=== PATIENT | male | born 1975 | race Caucasian/White ===

== ENCOUNTER 2018-01-06 09:25 | Inpatient (IN) | payer BC, OTHER ==
[~2018-01-06] VITALS: Ht 177.8 cm; Wt 74.8 kg
--- NOTE | 2018-01-06 09:34 | NUR ---
PT IS IN ROOM #2A. DR DILLARD EVALUATED THE PT.
[2018-01-06 10:06] LABS: BASOPHILS # (AUTO) 0.1 K/uL (0.0-8.0); BASOPHILS % (AUTO) 0.4 % (0.0-2.0); EOSINOPHILS % (AUTO) 0.1 % (0.0-7.0); HEMATOCRIT 48.6 % (36.7-47.1); HEMOGLOBIN 16.5 g/dL (12.5-16.3); LYMPHOCYTES # (AUTO) 0.5 K/uL (20.0-40.0); LYMPHOCYTES % (AUTO) 2.9 % (20.5-51.5); MEAN CORPUSCULAR HEMOGLOBIN 32.7 uug (23.8-33.4); MEAN CORPUSCULAR HGB CONC 34 g/dL (32.5-36.3); MEAN CORPUSCULAR VOLUME 96.3 fL (73.0-96.2); MONOCYTES # (AUTO) 1.2 K/uL (2.0-10.0); MONOCYTES % (AUTO) 7.1 % (0.0-11.0); NEUTROPHILS % (AUTO) 89.5 % (38.5-71.5); PLATELET COUNT (AUTO) 113 K/uL (152-348); RED BLOOD CELL COUNT(AUTO) 5.04 MIL/uL (4.06-5.63); WHITE BLOOD COUNT (AUTO) 16.7 K/uL (3.6-10.2)
[2018-01-06 10:07] LABS: CARBON DIOXIDE 17 mmol/L (21-32); CHLORIDE 98 mmol/L (98-107); CREATININE 1.2 mg/dL (0.6-1.3); GLUCOSE 169 mg/dL (74-106); POTASSIUM 3.1 mmol/L (3.5-5.1); UREA NITROGEN, BLOOD 4 mg/dL (7-18)
[2018-01-06 10:24] LABS: ACETAMINOPHEN 2.8 ug/mL (10-30); ALANINE AMINOTRANSFERASE 163 U/L (16-63); ALKALINE PHOSPHATASE 145 U/L (50-136); ASPARTATE AMINOTRANSFERASE 365 U/L (15-37); BILIRUBIN,DIRECT 0.5 mg/dL (0.0-0.2); BILIRUBIN,TOTAL 1.4 mg/dL (0.2-1.0); TOTAL PROTEIN, SERUM 6.9 g/dL (6.4-8.2)
[2018-01-06] MEDS ORDERED: IV NORMAL SALINE 1000 ML BAG IV ONE (10:30)
[2018-01-06 10:31] LABS: BAND % (MANUAL) 8 % (0-10); LYMPHOCYTES % (MANUAL) 2 % (20-40); MONOCYTES % (MANUAL) 6 % (2-10); NEUTROPHILS % (MANUAL) 84 % (42-75)
--- NOTE | 2018-01-06 10:35 | NUR ---
[facility] WAS CALLED TO TALK TO DR KEATING.
[2018-01-06 10:51] LABS: ETHANOL < 3 MG/DL (0-0)
[2018-01-06 10:57] LABS: THYROID STIMULATING HORMONE 1.926 mIU/mL (0.358-3.740)
[2018-01-06] MEDS ORDERED: LORAZEPAM 2 MG/1 ML VIAL IV ONE (11:30)
[2018-01-06] MEDS ORDERED: LORAZEPAM 2 MG/1 ML VIAL ONE (11:30)
--- NOTE | 2018-01-06 11:32 | NUR ---
PT WAS TRANSFERED TO ROOM #204. REPORT WAS GIVEN TO MEDIA PLANNER / BUYER.
[2018-01-06] MEDS ORDERED: ACETAMINOPHEN 650 MG SUPP.RECT RC PRN (12:45)
[2018-01-06] MEDS ORDERED: ONDANSETRON 4 MG/2 ML VIAL IV PRN (12:45)
[2018-01-06] MEDS ORDERED: LORAZEPAM 2 MG/1 ML VIAL IV PRN (12:45)
[2018-01-06] MEDS: LORAZEPAM 2 MG/1 ML VIAL IV PRN ×2 (13:10→20:38)
[2018-01-06 13:48] VITALS: BP 152/84
[2018-01-06] MEDS: POTASSIUM CHLORIDE 20 MEQ in IV D5 1/2 NS 1000 ML 1,000 ML IV PRN ×2 (15:48→23:29)
--- NOTE | 2018-01-06 18:52 | NUR ---
PT OBSERVED RESTING IN BED WITH NO SIGNS OF RESPIRATORY DISTRESS, BREATHING EQUALLY. CALM, COOPERATIVE NO SIGNS OR SEIZURE ACTIVITY. IV SITE INTACT LEFT AC #20 GAUGE. SEIZURE PRECAUTIONS INITIATED. CONTINUE TO MONITOR PT.
[2018-01-06 20:10] VITALS: BP 117/72
--- NOTE | 2018-01-06 21:00 | NUR ---
Received patient awake in bed, no SOB denies chest pain. Anxious w/ hand tremors noted, c/o N/V. Continuos IVF infusing well, IV site patent no signs of infiltration. Tele shows sinus rhythm 90s. NPO, ice chips provided. Ativan 2 mg IVP adm. Will continue to monitor.
--- NOTE | 2018-01-06 21:56 | NUR ---
Remains awake but calm at this time. Seizure precaution observed, padded side rails x4 maintained.
[2018-01-06] MEDS: MORPHINE SULFATE 2 MG/1 ML DISP.SYRIN IV PRN (23:27)
--- NOTE | 2018-01-06 23:33 | NUR ---
Patient still awake, bilateral hand tremors noted c/o abdominal discomfort. Patient warm to touch w/ current temp 99.9 F. Morphine 2 mg IVP adm for abdominal pain. Encouraged to take a bath but patient stated he will do it in the morning. Sponge bath & oral care provided. Cooling measures applied. IVF maintained.
[2018-01-07] VITALS: BP 131/82
[2018-01-07] MEDS: LORAZEPAM 2 MG/1 ML VIAL IV PRN (02:01)
[2018-01-07 04:24] VITALS: BP 122/62
[2018-01-07] MEDS: PANTOPRAZOLE SODIUM 40 MG VIAL IV SCH (06:20)
[2018-01-07] MEDS: POTASSIUM CHLORIDE 20 MEQ in IV D5 1/2 NS 1000 ML 1,000 ML IV PRN (06:31)
[2018-01-07 06:34] LABS: BASOPHILS # (AUTO) 0.1 K/uL (0.0-8.0); BASOPHILS % (AUTO) 0.6 % (0.0-2.0); EOSINOPHILS % (AUTO) 0.3 % (0.0-7.0); HEMATOCRIT 47.7 % (36.7-47.1); HEMOGLOBIN 16.4 g/dL (12.5-16.3); LYMPHOCYTES # (AUTO) 0.5 K/uL (20.0-40.0); LYMPHOCYTES % (AUTO) 3.7 % (20.5-51.5); MEAN CORPUSCULAR HEMOGLOBIN 33.2 uug (23.8-33.4); MEAN CORPUSCULAR HGB CONC 34 g/dL (32.5-36.3); MEAN CORPUSCULAR VOLUME 96.8 fL (73.0-96.2); MONOCYTES # (AUTO) 0.7 K/uL (2.0-10.0); MONOCYTES % (AUTO) 4.7 % (0.0-11.0); NEUTROPHILS # (AUTO) 13.5 K/uL (1.8-8.9); NEUTROPHILS % (AUTO) 90.7 % (38.5-71.5); PLATELET COUNT (AUTO) 103 K/uL (152-348); RED BLOOD CELL COUNT(AUTO) 4.93 MIL/uL (4.06-5.63); WHITE BLOOD COUNT (AUTO) 14.9 K/uL (3.6-10.2)
--- NOTE | 2018-01-07 07:00 | NUR ---
No seizure activity noted. Assisted to the bathroom PRN. Foul odor urine noted, urine specimen sent to the lab for UA C&S test. Vital signs WNL. Sinus rhythm sinus tachy on the monitor.
[2018-01-07 07:15] LABS: BILIRUBIN,TOTAL 1.7 mg/dL (0.2-1.0); CREATININE 0.9 mg/dL (0.6-1.3); MAGNESIUM 1.5 mg/dL (1.8-2.4); PHOSPHOROUS 1.3 mg/dL (2.5-4.9); POTASSIUM 3.2 mmol/L (3.5-5.1); TOTAL PROTEIN, SERUM 6.5 g/dL (6.4-8.2)
[2018-01-07 07:55] LABS: *BLOOD, URINE 1+ (NEGATIVE); *CLARITY,URINE SLIGHTLY CLOUDY (CLEAR); *KETONES,URINE NEGATIVE (NEGATIVE); *PROTEIN,URINE 1+ (NEGATIVE); LEUKOCYTE ESTERASE ,URINE 2+ (NEGATIVE); NITRITE, URINE POSITIVE (NEGATIVE); UGLUCOSE NEGATIVE (NEGATIVE)
--- NOTE | 2018-01-07 08:00 | NUR ---
UP AND ABOUT TO BATHROOM NO SS OF SEIZURE. NOTED SHAKING BOTH HANDS. CONTINUE WITH CLOSE OBSERVATION. NPO FOR PANCREATITIS TILL FURTHER ORDER. SR/ST ON MONITOR. DENIES CP OR SOB
[2018-01-07 08:30] LABS: *BILIRUBIN,URIN 1+ (NEGATIVE); *COLOR,URINE DARK YELLOW (YELLOW)
[2018-01-07 08:52] LABS: *AMPHETAMINE, URINE NEGATIVE (NEGATIVE); *BARBITURATE, URINE NEGATIVE (NEGATIVE); *CANNABINOID, URINE NEGATIVE (NEGATIVE); *COCCAINE, URINE NEGATIVE (NEGATIVE); *OPIATE, URINE POSITIVE (NEGATIVE); *PHENCYCLIDINE SCREEN,URINE NEGATIVE (NEGATIVE)
[2018-01-07 09:00] LABS: BACTERIA,URINE MANY /HPF (NONE SEEN); SQUAMOUS EPITHELIAL CELL,UR FEW /HPF (NONE SEEN); WBC,URINE 50-80 /HPF (0-3)
[2018-01-07 11:07] VITALS: BP 130/87
[2018-01-07] MEDS: MAGNESIUM SULFATE/D5W 100 ML IV SCH ×2 (12:27→13:23)
--- NOTE | 2018-01-07 13:36 | NUR ---
RESTING COMFORTABLY, CLOSELY MONITORED FOR SEIZURE ACTIVITY. SEEN BY DR KEATING NOTED LABS WITH ORDER
[2018-01-07] MEDS: CEFTRIAXONE 1 G in IV DEXTROSE 5% 50 ML IV SCH (14:49)
[2018-01-07] MEDS: POTASSIUM CHLORIDE 20 MEQ in IV 1/2NS 1000 ML 1,000 ML IV PRN (14:51)
[2018-01-07 15:03] VITALS: BP 140/88
[2018-01-07] MEDS: POTASSIUM PHOSPHATE MM 7.5 MMOL in IV DEXTROSE 5% 100 ML IV SCH ×2 (15:06→18:32)
--- NOTE | 2018-01-07 18:12 | NUR ---
NO ACTIVE SEIZURE NOTED, NO REACTION FROM IV ANTIBIOTIC, SR/ST ON MONITOR NO C/O CHEST PAIN. AFEBRILE
--- NOTE | 2018-01-07 19:20 | NUR ---
RECEIVE PT LYING IN BED. AAOX4. DENIES ANY PAIN OR SOB AT THIS TIME. NOT IN ACUTE DISTRESS. SINUS RHYTHM ON TELE AT 100/MIN. IV SITE ON RIGHT FA INTACT AND PATENT. IVF INFUSING. SAFETY MEASURE INITIATED AND CALL [facility] WITHIN REACHED.
[2018-01-07 20:24] VITALS: BP 130/84
--- NOTE | 2018-01-08 | NUR ---
TEMP. IS 100.0 ORALLY, OFFERED TYLENOL BUT PT REFUSED. COOLING MEASURE PROVIDED.
[2018-01-08 00:01] VITALS: BP 142/87
--- NOTE | 2018-01-08 01:00 | NUR ---
TEMP. DOWN TO 99.0 ORALLY.
[2018-01-08 04:00] VITALS: BP 140/72
--- NOTE | 2018-01-08 06:07 | NUR ---
AAOX4. DENIES ANY PAIN OR SOB. O2 SAT AT 99% ON RA. NO EPISODE OF SEIZURE. NOT IN ACUTE DISTRESS. PEAK T WAVE ON TELE. IV SITE ON RFA INTACT AND PATENT. IVF INFUSING. SAFETY MEASURE MAINTAINED AND CALL [facility] WITHIN REACH.
--- NOTE | 2018-01-08 07:10 | NUR ---
RECEIVED REPORT FROM HEAD CHARGER NURSE, PATIENT IN BED AWAKE, NO DISTRESS NOTED AT THIS TIME, BED IN LOW POSITION, SIDE RAILS UP X2.
[2018-01-08 07:28] LABS: BASOPHILS % (AUTO) 0.3 % (0.0-2.0); EOSINOPHILS # (AUTO) 0.1 K/uL (0.0-0.7); EOSINOPHILS % (AUTO) 0.8 % (0.0-7.0); HEMATOCRIT 46.7 % (36.7-47.1); LYMPHOCYTES # (AUTO) 0.4 K/uL (20.0-40.0); LYMPHOCYTES % (AUTO) 4.5 % (20.5-51.5); MEAN CORPUSCULAR HGB CONC 34 g/dL (32.5-36.3); MEAN CORPUSCULAR VOLUME 96.4 fL (73.0-96.2); MONOCYTES # (AUTO) 0.9 K/uL (2.0-10.0); NEUTROPHILS # (AUTO) 8.2 K/uL (1.8-8.9); NEUTROPHILS % (AUTO) 85.4 % (38.5-71.5); PLATELET COUNT (AUTO) 95 K/uL (152-348); RED BLOOD CELL COUNT(AUTO) 4.84 MIL/uL (4.06-5.63)
[2018-01-08 07:35] LABS: BILIRUBIN,TOTAL 1.7 mg/dL (0.2-1.0); CREATININE 0.7 mg/dL (0.6-1.3); MAGNESIUM 1.8 mg/dL (1.8-2.4); PHOSPHOROUS 1.7 mg/dL (2.5-4.9); POTASSIUM 3.4 mmol/L (3.5-5.1); TOTAL PROTEIN, SERUM 6.4 g/dL (6.4-8.2)
[2018-01-08 07:39] LABS: WHITE BLOOD COUNT (AUTO) 9.6 K/uL (3.6-10.2)
--- NOTE | 2018-01-08 08:00 | NUR ---
AWAKE ALERT AND ORIENTED X3, DENIES PAIN OR SOB, DENIES ABDOMINAL PAIN. WILL FOLLOW-UP LABS. SR/ST ON MONITOR
[2018-01-08] MEDS: PANTOPRAZOLE SODIUM 40 MG VIAL IV SCH (08:50)
[2018-01-08] MEDS: POTASSIUM CHLORIDE 20 MEQ in IV 1/2NS 1000 ML 1,000 ML IV PRN (08:55)
--- NOTE | 2018-01-08 10:30 | NUR ---
GAVE REPORT TO RN MARLENI, PATIENT AWAKE/ALERT, NO DISTRESS NOTED AT THIS TIME.
[2018-01-08 10:44] LABS: BAND % (MANUAL) 3 % (0-10); LYMPHOCYTES % (MANUAL) 2 % (20-40); MONOCYTES % (MANUAL) 9 % (2-10); NEUTROPHILS % (MANUAL) 86 % (42-75)
[2018-01-08 11:00] VITALS: BP 114/68
--- NOTE | 2018-01-08 12:00 | NUR ---
SEEN BY DR KEATING TALKED ABOUT PLAN OF CARE. PLAN DC IN AM.
[2018-01-08] MEDS: CEFTRIAXONE 1 G in IV DEXTROSE 5% 50 ML IV SCH (14:22)
[2018-01-08] MEDS: POTASSIUM PHOSPHATE MM 5 MMOL in IV DEXTROSE 5% 100 ML IV SCH ×4 (14:59→21:40)
[2018-01-08 15:25] VITALS: BP 108/72
[2018-01-08] MEDS: MORPHINE SULFATE 2 MG/1 ML DISP.SYRIN IV PRN (15:26)
--- NOTE | 2018-01-08 15:30 | NUR ---
C/O SEVERE SHOOK MEDICATED WITH MORPHINE WITH GOOD RELIEF. REMAINS SRST ON MONITOR
--- NOTE | 2018-01-08 19:13 | NUR ---
RECEIVE PT LYING IN BED. AAOX4. DENIES ANY PAIN OR SOB AT THIS TIME. NOT IN ACUTE DISTRESS. IV SITE ON RIGHT FA INTACT AND PATENT. IV INFUSING. SAFETY MEASURE INITIATED AND CALL [facility] WITHIN REACHED.
[2018-01-08 20:00] VITALS: BP 130/86
[2018-01-08] MEDS ORDERED: ACETAMINOPHEN 650 MG SUPP.RECT RC PRN (20:45)
[2018-01-08] MEDS ORDERED: ACETAMINOPHEN 325 MG TABLET PO PRN (21:00)
--- NOTE | 2018-01-08 21:00 | NUR ---
PT TEMP IS 102.1 ORALLY. COOLING MEASURE PROVIDED. ALSO INFORMED DOCTOR ZURI. AND ORDER TO CHANGE ACETAMINOPHEN TO ORAL FORM AND BLOOD CULTURE X2. ORDER READ BACK AND CARRIED OUT. INFORM BREAKER MACHINE TENDER NATHAN OF BLOOD CULTURE ORDER. ACETAMINOPHEN 650MG PO PROVIDED. CONTINUE TO MONITOR.
--- NOTE | 2018-01-08 21:45 | NUR ---
ORAL TEMP. DOWN TO 99.5. CONTINUE COOLING MEASURES.
--- NOTE | 2018-01-09 | NUR ---
DOCTOR ZURI WITH ORDER TO START PT ON MERREM 1GM Q8HR DUE TO INCREASE TEMP. ORDER NOTED AND CARRIED.
[2018-01-09] MEDS ORDERED: MEROPENEM 1 G VIAL IV ONE (00:30)
[2018-01-09] MEDS: POTASSIUM CHLORIDE 20 MEQ in IV 1/2NS 1000 ML 1,000 ML IV PRN ×2 (04:27→23:09)
[2018-01-09 05:15] VITALS: BP 128/89
[2018-01-09] MEDS: MEROPENEM 1 G in IV NORMAL SALINE 100 ML IV SCH ×5 (05:59→22:07)
[2018-01-09] MEDS: PANTOPRAZOLE SODIUM 40 MG TABLET.DR PO SCH (06:00)
--- NOTE | 2018-01-09 06:01 | NUR ---
PT SLEPT WELL LAST NIGHT. AROUSE TO VERBAL STIMULI. AOX4. DENIES ANY PAIN OR SOB. O2 SAT AT 98% ON RA. NO SEIZURE EPISODE. NOT IN ACUTE DISTRESS. LATEST TEMP-97.3 ORALLY. NO ADVERSE REACTION NOTED FROM ABX. IV SITE ON RFA INTACT AND PATENT. IVF INFUSING. SAFETY MEASURE MAINTAINED AND CALL [facility] WITHIN REACH.
[2018-01-09 07:17] LABS: BASOPHILS % (AUTO) 0.6 % (0.0-2.0); EOSINOPHILS % (AUTO) 0.8 % (0.0-7.0); HEMATOCRIT 47.8 % (36.7-47.1); HEMOGLOBIN 16.4 g/dL (12.5-16.3); LYMPHOCYTES # (AUTO) 0.3 K/uL (20.0-40.0); LYMPHOCYTES % (AUTO) 5.2 % (20.5-51.5); MEAN CORPUSCULAR HEMOGLOBIN 33.1 uug (23.8-33.4); MEAN CORPUSCULAR HGB CONC 34 g/dL (32.5-36.3); MEAN CORPUSCULAR VOLUME 96.5 fL (73.0-96.2); MONOCYTES # (AUTO) 1.1 K/uL (2.0-10.0); MONOCYTES % (AUTO) 19.1 % (0.0-11.0); NEUTROPHILS # (AUTO) 4.1 K/uL (1.8-8.9); NEUTROPHILS % (AUTO) 74.3 % (38.5-71.5); PLATELET COUNT (AUTO) 114 K/uL (152-348); RED BLOOD CELL COUNT(AUTO) 4.95 MIL/uL (4.06-5.63); WHITE BLOOD COUNT (AUTO) 5.6 K/uL (3.6-10.2)
[2018-01-09 07:37] LABS: ALANINE AMINOTRANSFERASE 96 U/L (16-63); ALKALINE PHOSPHATASE 126 U/L (50-136); ASPARTATE AMINOTRANSFERASE 127 U/L (15-37); BILIRUBIN,TOTAL 1.2 mg/dL (0.2-1.0); CARBON DIOXIDE 23 mmol/L (21-32); CHLORIDE 101 mmol/L (98-107); CREATININE 0.6 mg/dL (0.6-1.3); GLUCOSE 90 mg/dL (74-106); LIPASE 835 U/L (73-393); MAGNESIUM 1.7 mg/dL (1.8-2.4); PHOSPHOROUS 1.8 mg/dL (2.5-4.9); POTASSIUM 3.2 mmol/L (3.5-5.1); TOTAL PROTEIN, SERUM 6.3 g/dL (6.4-8.2); UREA NITROGEN, BLOOD 4 mg/dL (7-18)
[2018-01-09 09:46] LABS: BAND % (MANUAL) 10 % (0-10); EOSINOPHILS % (MANUAL) 2 % (0-8); LYMPHOCYTES % (MANUAL) 4 % (20-40); METAMYELOCYTES % 1 % (0-1); MONOCYTES % (MANUAL) 15 % (2-10); NEUTROPHILS % (MANUAL) 68 % (42-75)
[2018-01-09 11:23] VITALS: BP 114/79
[2018-01-09] MEDS: MAGNESIUM SULFATE/D5W 100 ML IV SCH ×2 (14:48→15:19)
[2018-01-09 16:00] VITALS: BP 124/86
[2018-01-09] MEDS: POTASSIUM PHOSPHATE MM 7.5 MMOL in IV DEXTROSE 5% 100 ML IV SCH ×2 (16:10→20:29)
[2018-01-09] MEDS ORDERED: IV NORMAL SALINE 100 ML ONE (18:26)
[2018-01-09] MEDS ORDERED: IOHEXOL 300MG/ML 100 ML INFUS..BTL ONE (18:26)
[2018-01-09] MEDS ORDERED: DIATR MEGLU/DIATRIZOATE SODIUM 30 ML SOLUTION ONE (18:26)
[2018-01-09] MEDS ORDERED: NORMAL SALINE FLUSH 10 ML DISP.SYRIN ONE (18:26)
--- NOTE | 2018-01-09 19:20 | NUR ---
RECEIVED Pt IN BED, AWAKE A/O X 4, NO DISTRESS, NOT COMPLAINING OF PAIN. Pt IS GETTING READY TO LEAVE UNIT AND GET A CT SCAN OF ABDOMEN. HELD CURRENT SCHEDULED IV ADMINISTRATIONS FOR NOW UNTIL Pt COMES BACK FROM CT SCAN.
[2018-01-09 20:20] VITALS: BP 136/99
--- NOTE | 2018-01-09 20:30 | NUR ---
Pt BACK IN BED FROM CT SCAN, STARTED A NEW IV ON LEFT HAND. Pt COMPLAINED OF DISCOMFORT ON THE PRESENT IV SITE ON RIGHT HAND. WILL ADMINISTER ALL SCHEDULED IV BAGS ORDERED ON NEW SITE. WILL D/C THE OLD IV SITE.
[2018-01-10 04:57] VITALS: BP 121/83
[2018-01-10] MEDS: PANTOPRAZOLE SODIUM 40 MG TABLET.DR PO SCH (06:17)
[2018-01-10] MEDS: MEROPENEM 1 G in IV NORMAL SALINE 100 ML IV SCH ×3 (06:18→21:03)
[2018-01-10 06:38] LABS: BILIRUBIN,TOTAL 0.8 mg/dL (0.2-1.0); CREATININE 0.7 mg/dL (0.6-1.3); PHOSPHOROUS 2.3 mg/dL (2.5-4.9); POTASSIUM 3.8 mmol/L (3.5-5.1); TOTAL PROTEIN, SERUM 6.7 g/dL (6.4-8.2)
[2018-01-10 06:50] LABS: BASOPHILS # (AUTO) 0.1 K/uL (0.0-8.0); BASOPHILS % (AUTO) 1.1 % (0.0-2.0); EOSINOPHILS # (AUTO) 0.3 K/uL (0.0-0.7); EOSINOPHILS % (AUTO) 4.3 % (0.0-7.0); HEMATOCRIT 50.2 % (36.7-47.1); HEMOGLOBIN 17.5 g/dL (12.5-16.3); LYMPHOCYTES # (AUTO) 0.6 K/uL (20.0-40.0); MEAN CORPUSCULAR HEMOGLOBIN 33.7 uug (23.8-33.4); MEAN CORPUSCULAR HGB CONC 35 g/dL (32.5-36.3); MEAN CORPUSCULAR VOLUME 96.7 fL (73.0-96.2); MONOCYTES # (AUTO) 1.7 K/uL (2.0-10.0); MONOCYTES % (AUTO) 27.1 % (0.0-11.0); NEUTROPHILS # (AUTO) 3.6 K/uL (1.8-8.9); NEUTROPHILS % (AUTO) 57.5 % (38.5-71.5); PLATELET COUNT (AUTO) 137 K/uL (152-348); RED BLOOD CELL COUNT(AUTO) 5.19 MIL/uL (4.06-5.63); WHITE BLOOD COUNT (AUTO) 6.3 K/uL (3.6-10.2)
--- NOTE | 2018-01-10 07:12 | NUR ---
Pt SLEPT WELL THROUGH THE NIGHT, COMPLIED WITH ALL MEDS AND CARE STAFF, CALM AND PLEASANT. NO S/S OF DISTRESS, NO COMPLAINTS OF PAIN. WILL CONTINUE TO MONITOR AND FOLLOW PLAN OF CARE.
--- NOTE | 2018-01-10 07:15 | NUR ---
RECEIVE PT LYING IN BED. AAOX4. DENIES ANY PAIN OR SOB AT THIS TIME. NOT IN ACUTE DISTRESS. IV SITE INTACT AND PATENT. IV INFUSING. SAFETY MEASURE INITIATED AND CALL [facility] WITHIN REACHED.
[2018-01-10] MEDS: POTASSIUM CHLORIDE 20 MEQ in IV 1/2NS 1000 ML 1,000 ML IV PRN (10:34)
[2018-01-10 11:30] VITALS: BP 126/86
[2018-01-10 11:36] LABS: BAND % (MANUAL) 1 % (0-10); EOSINOPHILS % (MANUAL) 2 % (0-8); LYMPHOCYTES % (MANUAL) 11 % (20-40); MONOCYTES % (MANUAL) 28 % (2-10); NEUTROPHILS % (MANUAL) 58 % (42-75)
[2018-01-10 15:33] VITALS: BP 127/86
[2018-01-10] MEDS ORDERED: SODIUM PHOSPHATE MM 15 MM in IV DEXTROSE 5% 250 ML IV ONE (16:00)
--- NOTE | 2018-01-10 19:30 | NUR ---
Received patient laying comfortably in bed. No acute distress noted. A&O x 4. IVF running on the left FA. No complain of pain at this time. Safety initiated. Call light within reach. Room is kept clutter free. Bed is in low and locked position. Will continue to monitor.
[2018-01-10 20:13] VITALS: BP 130/84
[2018-01-11 05:16] VITALS: BP 116/70
[2018-01-11] MEDS: MEROPENEM 1 G in IV NORMAL SALINE 100 ML IV SCH ×2 (05:23→13:51)
[2018-01-11] MEDS: POTASSIUM CHLORIDE 20 MEQ in IV 1/2NS 1000 ML 1,000 ML IV PRN (05:23)
--- NOTE | 2018-01-11 05:31 | NUR ---
Patient slept t/o shift. No acute distress noted. No c/o pain or SOB. Patient remains A&O x 4. IVF infusing. Abx given as ordered with no adverse effects. Vitals signs stable. Room was kept clutter free. Bed in low and locked position. All meds given as ordered. All needs met.
[2018-01-11] MEDS: PANTOPRAZOLE SODIUM 40 MG TABLET.DR PO SCH (06:25)
[2018-01-11 07:32] LABS: BASOPHILS # (AUTO) 0.1 K/uL (0.0-8.0); EOSINOPHILS # (AUTO) 0.4 K/uL (0.0-0.7); EOSINOPHILS % (AUTO) 5.6 % (0.0-7.0); HEMATOCRIT 48.5 % (36.7-47.1); HEMOGLOBIN 16.7 g/dL (12.5-16.3); LYMPHOCYTES % (AUTO) 14.8 % (20.5-51.5); MEAN CORPUSCULAR HEMOGLOBIN 33.1 uug (23.8-33.4); MEAN CORPUSCULAR HGB CONC 34 g/dL (32.5-36.3); MEAN CORPUSCULAR VOLUME 96.2 fL (73.0-96.2); MONOCYTES # (AUTO) 1.9 K/uL (2.0-10.0); MONOCYTES % (AUTO) 29.3 % (0.0-11.0); NEUTROPHILS # (AUTO) 3.2 K/uL (1.8-8.9); NEUTROPHILS % (AUTO) 49.3 % (38.5-71.5); PLATELET COUNT (AUTO) 169 K/uL (152-348); RED BLOOD CELL COUNT(AUTO) 5.04 MIL/uL (4.06-5.63); WHITE BLOOD COUNT (AUTO) 6.5 K/uL (3.6-10.2)
[2018-01-11 07:58] LABS: BILIRUBIN,TOTAL 0.8 mg/dL (0.2-1.0); CREATININE 0.7 mg/dL (0.6-1.3); MAGNESIUM 1.9 mg/dL (1.8-2.4); PHOSPHOROUS 2.4 mg/dL (2.5-4.9); POTASSIUM 3.2 mmol/L (3.5-5.1); TOTAL PROTEIN, SERUM 6.4 g/dL (6.4-8.2)
--- NOTE | 2018-01-11 08:00 | NUR ---
AWAKE ALERT COOPERATE WELL KEEP NPO AND CONTINUE IVF NO PAIN OR SOB AT THIS TIME RESTING WELL WITH CALL LIGHT IN REACH
[2018-01-11 09:34] LABS: BAND % (MANUAL) 4 % (0-10); EOSINOPHILS % (MANUAL) 3 % (0-8); LYMPHOCYTES % (MANUAL) 11 % (20-40); MONOCYTES % (MANUAL) 30 % (2-10); NEUTROPHILS % (MANUAL) 52 % (42-75)
--- NOTE | 2018-01-11 10:35 | NUR ---
DR KEATING WAS INFORM OF K+ AND PO3 RESULT THIS AM
[2018-01-11 11:02] VITALS: BP 120/86
--- NOTE | 2018-01-11 13:45 | NUR ---
MEDICATION KPO4 IVPB GIVEN ORDER MELYSSA PROCEDURE WELL RESTING STILL NPO NO PAIN OR N/V AT THIS TIME
[2018-01-11] MEDS: POTASSIUM PHOSPHATE MM 7.5 MMOL in IV DEXTROSE 5% 100 ML IV SCH ×2 (13:49→17:34)
[2018-01-11 15:02] VITALS: BP 123/93
--- NOTE | 2018-01-11 18:30 | NUR ---
STABLE CONDITION STILL NPO CONTINUE IVF NO N/V PAIN UNDER CONTROL SAFETY MEASURE PROVIDED CALL LIGHT IN REACH
--- NOTE | 2018-01-11 19:30 | NUR ---
Received patient laying comfortably in bed. No acute distress noted. No c/o of pain or SOB. A&O x 4. IVF running on the left FA. No complain of pain at this time. Skin intact. Safety initiated. Call light within reach. Room is kept clutter free. Bed is in low and locked position. Will continue to monitor.
[2018-01-11 19:38] VITALS: BP 131/68
[2018-01-11] MEDS: LEVOFLOXACIN 500 MG/D5W 500 MG in PREMIXED 1 EACH IV SCH (21:01)
[2018-01-12] VITALS: BP 112/76
[2018-01-12] MEDS: POTASSIUM CHLORIDE 20 MEQ in IV 1/2NS 1000 ML 1,000 ML IV PRN ×2 (01:48→13:26)
[2018-01-12 04:00] VITALS: BP 119/75
--- NOTE | 2018-01-12 05:40 | NUR ---
Patient slept intermittently t/o shift. In no apparent distress noted. Vital signs stable. A/O x 4. Patient's IV site was red and irritated. Re-started an IV on the left AC # 20. IVF infusing. Safety and comfort measures maintained t/o shift. Room was kept clutter free. Patient remains cooperative and med compliant. All meds given as ordered. All need met.
[2018-01-12 06:05] LABS: BASOPHILS # (AUTO) 0.1 K/uL (0.0-8.0); BASOPHILS % (AUTO) 1.1 % (0.0-2.0); EOSINOPHILS # (AUTO) 0.3 K/uL (0.0-0.7); EOSINOPHILS % (AUTO) 5.2 % (0.0-7.0); LYMPHOCYTES # (AUTO) 0.9 K/uL (20.0-40.0); LYMPHOCYTES % (AUTO) 16.5 % (20.5-51.5); MEAN CORPUSCULAR HEMOGLOBIN 32.7 uug (23.8-33.4); MEAN CORPUSCULAR HGB CONC 34 g/dL (32.5-36.3); MEAN CORPUSCULAR VOLUME 96.8 fL (73.0-96.2); MONOCYTES # (AUTO) 1.5 K/uL (2.0-10.0); MONOCYTES % (AUTO) 27.4 % (0.0-11.0); NEUTROPHILS # (AUTO) 2.8 K/uL (1.8-8.9); NEUTROPHILS % (AUTO) 49.8 % (38.5-71.5); PLATELET COUNT (AUTO) 207 K/uL (152-348); RED BLOOD CELL COUNT(AUTO) 5.54 MIL/uL (4.06-5.63); WHITE BLOOD COUNT (AUTO) 5.6 K/uL (3.6-10.2)
[2018-01-12] MEDS: PANTOPRAZOLE SODIUM 40 MG TABLET.DR PO SCH (06:23)
[2018-01-12 06:24] LABS: MAGNESIUM 1.8 mg/dL (1.8-2.4); PHOSPHOROUS 2.4 mg/dL (2.5-4.9)
[2018-01-12 06:36] LABS: HEMATOCRIT 53.6 % (36.7-47.1); HEMOGLOBIN 18.1 g/dL (12.5-16.3)
--- NOTE | 2018-01-12 07:25 | NUR ---
RECEIVE PT LYING IN BED. AAOX4. DENIES ANY PAIN OR SOB AT THIS TIME. NOT IN ACUTE DISTRESS. IV SITE ON LAC INTACT AND PATENT. IV INFUSING. SAFETY MEASURE INITIATED AND CALL [facility] WITHIN REACHED.
[2018-01-12 10:51] LABS: BAND % (MANUAL) 2 % (0-10); EOSINOPHILS % (MANUAL) 5 % (0-8); LYMPHOCYTES % (MANUAL) 17 % (20-40); MONOCYTES % (MANUAL) 22 % (2-10); NEUTROPHILS % (MANUAL) 54 % (42-75)
[2018-01-12 11:03] VITALS: BP 121/63
[2018-01-12] MEDS ORDERED: MORPHINE SULFATE 4 MG/1 ML DISP.SYRIN IV PRN (11:45)
[2018-01-12 12:50] LABS: CREATININE 0.8 mg/dL (0.6-1.3); POTASSIUM 3.7 mmol/L (3.5-5.1)
[2018-01-12 12:56] LABS: BILIRUBIN,TOTAL 0.8 mg/dL (0.2-1.0)
[2018-01-12 15:12] VITALS: BP 117/75
[2018-01-12] MEDS: POTASSIUM PHOSPHATE MM 5 MMOL in IV DEXTROSE 5% 100 ML IV SCH ×3 (16:10→22:20)
[2018-01-12] MEDS: LEVOFLOXACIN 500 MG/D5W 500 MG in PREMIXED 1 EACH IV SCH (18:16)
[2018-01-12 20:00] VITALS: BP 121/71
[2018-01-13] MEDS: POTASSIUM PHOSPHATE MM 5 MMOL in IV DEXTROSE 5% 100 ML IV SCH (00:29)
[2018-01-13 04:00] VITALS: BP 115/75
[2018-01-13] MEDS: POTASSIUM CHLORIDE 20 MEQ in IV 1/2NS 1000 ML 1,000 ML IV PRN (04:58)
[2018-01-13] MEDS: PANTOPRAZOLE SODIUM 40 MG TABLET.DR PO SCH (06:08)
--- NOTE | 2018-01-13 06:49 | NUR ---
NO DISTRESS NOTED THROUGHOUT THE NIGHT. IV POTASSIUM BAG ADMINISTERED ORDERED. SAFETY MEASURES PROVIDED. VITAL SIGNS WNL. CALL LIGHT WITHIN REACH
[2018-01-13 11:04] VITALS: BP 111/80
[2018-01-13 15:09] VITALS: BP 116/58
[2018-01-13] MEDS ORDERED: FAMO-132 PO (15:17)
[2018-01-13] MEDS ORDERED: LEVO500T2 PO (15:17)
--- NOTE | 2018-01-13 16:00 | NUR ---
Discharge instructions given to pt. Pt tolerated regular diet without any c/o pain. Pt is in no acute distress. Pt is to f/u with PMD within 1 week re: elevated lipase level. Prescription given to pt. Educated pt on how to used probiotics secondary to pt's being sent home with marge. Pt verbalized understanding.
[2018-01-13] MEDS ORDERED: LEVOFLOXACIN 500 MG TABLET PO SCH (18:00)
== END 2018-01-13 16:00 | disposition home or self-care (01) | DRG 871 ==
LOC: ER 09:25 → TELE 11:31 → MED 01-08 18:44
PROVIDERS: ADMIT Internal Medicine; ATTEND Internal Medicine
DX: A41.51 Sepsis due to Escherichia coli [E. coli] (principal); K85.90 Acute pancreatitis without necrosis or infection, unspecified; R56.9 Unspecified convulsions; F10.239 Alcohol dependence with withdrawal, unspecified; N39.0 Urinary tract infection, site not specified; A04.9 Bacterial intestinal infection, unspecified; K70.10 Alcoholic hepatitis without ascites; Y90.0 Blood alcohol level of less than 20 mg/100 ml; Z82.49 Family history of ischemic heart disease and other diseases of the circulatory system; Z16.11 Resistance to penicillins; E87.6 Hypokalemia; R53.1 Weakness; K42.9 Umbilical hernia without obstruction or gangrene; K76.0 Fatty (change of) liver, not elsewhere classified; R00.0 Tachycardia, unspecified
CPT/HCPCS: 36415; 70030-TC; 70450; 71045; 72125; 76705; 80307; 83550; 83605; 83690; 83735; 84100; 84443; 85025; 85730; 87040; 87077; 87086; 93005; A4663; C9113; G0480; G0480-TC; J0696; J1956; J2060; J2185; J2270; J2405; J3475; J3480; J3490; J7030; J7060; Q9963; Q9967

== ENCOUNTER 2018-02-07 07:42 | Inpatient (IN) | payer BC, OTHER ==
[~2018-02-07] VITALS: Ht 177.8 cm; Wt 72.6 kg
[~2018-02-07 07:42] MED LIST: FAMO-132 PO; LEVO500T2 PO
[2018-02-07] MEDS ORDERED: CLONAZEPAM 0.5 MG TABLET (07:51)
[2018-02-07] MEDS ORDERED: GENTAMICIN SULFATE INJ 80 MG in IV DEXTROSE 5% 100 ML IV ONE (08:15)
[2018-02-07] MEDS ORDERED: ONDANSETRON 4 MG/2 ML VIAL IV ONE (08:15)
[2018-02-07] MEDS ORDERED: IV NORMAL SALINE 1000 ML BAG IV ONE (08:15)
[2018-02-07] MEDS ORDERED: LORAZEPAM 2 MG/1 ML VIAL IV ONE ×2 (08:15→17:45)
[2018-02-07] MEDS ORDERED: CEFEPIME HCL 1 G in IV DEXTROSE 5% 50 ML IV ONE (08:15)
[2018-02-07] MEDS ORDERED: VANCOMYCIN IV 1,000 MG in IV DEXTROSE 5% 250 ML IV ONE (08:15)
[2018-02-07] MEDS ORDERED: LORAZEPAM 2 MG/1 ML VIAL ONE (08:27)
[2018-02-07] MEDS ORDERED: CEFEPIME HCL 1 G VIAL ONE (08:27)
[2018-02-07] MEDS ORDERED: ONDANSETRON 4 MG/2 ML VIAL ONE (08:28)
[2018-02-07 08:44] LABS: CREATININE 0.9 mg/dL (0.6-1.3); POTASSIUM 3.3 mmol/L (3.5-5.1)
[2018-02-07 08:45] LABS: HEMOGLOBIN 14.7 g/dL (12.5-16.3); MEAN CORPUSCULAR HEMOGLOBIN 32.6 uug (23.8-33.4); MEAN CORPUSCULAR HGB CONC 36 g/dL (32.5-36.3); MEAN CORPUSCULAR VOLUME 91.1 fL (73.0-96.2); WHITE BLOOD COUNT (AUTO) 13.8 K/uL (3.6-10.2)
[2018-02-07 08:47] LABS: PLATELET COUNT (AUTO) 78 K/uL (152-348)
[2018-02-07 08:57] LABS: BILIRUBIN,DIRECT 0.4 mg/dL (0.0-0.2); BILIRUBIN,TOTAL 0.9 mg/dL (0.2-1.0); TOTAL PROTEIN, SERUM 7.2 g/dL (6.4-8.2)
[2018-02-07] MEDS ORDERED: chlorproMAZINE 50 MG/2 ML AMPUL IV ONE (09:00)
[2018-02-07] MEDS ORDERED: VANCOMYCIN IV 200 ML ONE (09:17)
[2018-02-07] MEDS ORDERED: chlorproMAZINE 50 MG/2 ML AMPUL ONE (09:17)
[2018-02-07 09:22] LABS: BAND % (MANUAL) 10 % (0-10); LYMPHOCYTES % (MANUAL) 5 % (20-40); MONOCYTES % (MANUAL) 12 % (2-10); NEUTROPHILS % (MANUAL) 73 % (42-75)
[2018-02-07] MEDS ORDERED: ACETAMINOPHEN ES 500 MG TABLET ONE (10:09)
[2018-02-07] MEDS ORDERED: GENTAMICIN SULFATE 80 MG/2 ML VIAL ONE (10:13)
[2018-02-07] MEDS ORDERED: ACETAMINOPHEN 325 MG TABLET PO ONE (10:15)
[2018-02-07 11:04] LABS: *BILIRUBIN,URIN NEGATIVE (NEGATIVE); *BLOOD, URINE 2+ (NEGATIVE); *CLARITY,URINE CLOUDY (CLEAR); *COLOR,URINE YELLOW (YELLOW); *KETONES,URINE 1+ (NEGATIVE); *PROTEIN,URINE 2+ (NEGATIVE); *UROBILINOGEN,URINE 0.2 E.U./dl (NORMAL); LEUKOCYTE ESTERASE ,URINE 2+ (NEGATIVE); NITRITE, URINE NEGATIVE (NEGATIVE); PH,URINE 6.5 (5.0-8.0); UGLUCOSE NEGATIVE (NEGATIVE)
[2018-02-07 11:25] LABS: BACTERIA,URINE NONE SEEN /HPF (NONE SEEN); SQUAMOUS EPITHELIAL CELL,UR FEW /HPF (NONE SEEN); WBC,URINE TNTC /HPF (0-3)
[2018-02-07] MEDS ORDERED: IV NS 1000 ML 1,000 ML IV PRN (11:34)
[2018-02-07 11:40] VITALS: BP 114/73
[2018-02-07] MEDS ORDERED: ONDANSETRON 4 MG/2 ML VIAL IV PRN (11:45)
[2018-02-07] MEDS ORDERED: TEMAZEPAM 15 MG CAPSULE PO PRN (11:45)
[2018-02-07] MEDS ORDERED: POTASSIUM CHLORIDE 50 ML IV ONE (12:00)
[2018-02-07] MEDS ORDERED: THIAMINE HCL INJ 100 MG in IV DEXTROSE 5% 50 ML IV ONE (13:30)
[2018-02-07] MEDS: LORAZEPAM 2 MG/1 ML VIAL IV PRN (13:45)
[2018-02-07 15:44] VITALS: BP 139/89
[2018-02-07] MEDS: chlorproMAZINE 25 MG TABLET PO PRN (15:46)
[2018-02-07] MEDS ORDERED: LOPERAMIDE HCL 1 MG/5 ML UDC PO PRN (17:45)
[2018-02-07] MEDS ORDERED: IV NORMAL SALINE 500 ML BAG IV ONE (17:45)
[2018-02-07] MEDS ORDERED: VANCOMYCIN IV 1 G in PREMIXED 0 EACH IV SCH (19:00)
[2018-02-07] MEDS: ACETAMINOPHEN 325 MG TABLET PO PRN (19:55)
[2018-02-07 20:00] VITALS: BP 114/69
[2018-02-08] VITALS: BP 124/83
[2018-02-08] MEDS: IV NS 1000 ML 1,000 ML IV PRN (03:50)
[2018-02-08 04:00] VITALS: BP 117/70
[2018-02-08] MEDS: LORAZEPAM 2 MG/1 ML VIAL IV PRN ×2 (04:18→23:00)
[2018-02-08] MEDS: ACETAMINOPHEN 325 MG TABLET PO PRN ×2 (04:18→14:34)
[2018-02-08 06:46] LABS: CREATININE 0.9 mg/dL (0.6-1.3); MAGNESIUM 1.4 mg/dL (1.8-2.4); PHOSPHOROUS 1.4 mg/dL (2.5-4.9); POTASSIUM 2.9 mmol/L (3.5-5.1); TOTAL PROTEIN, SERUM 6.2 g/dL (6.4-8.2)
[2018-02-08 06:56] LABS: BASOPHILS % (AUTO) 0.3 % (0.0-2.0); EOSINOPHILS % (AUTO) 0.1 % (0.0-7.0); HEMOGLOBIN 14.4 g/dL (12.5-16.3); LYMPHOCYTES # (AUTO) 0.5 K/uL (20.0-40.0); LYMPHOCYTES % (AUTO) 5.8 % (20.5-51.5); MEAN CORPUSCULAR HEMOGLOBIN 33.2 uug (23.8-33.4); MEAN CORPUSCULAR HGB CONC 36 g/dL (32.5-36.3); MEAN CORPUSCULAR VOLUME 92.6 fL (73.0-96.2); MONOCYTES % (AUTO) 11.5 % (0.0-11.0); NEUTROPHILS # (AUTO) 7.4 K/uL (1.8-8.9); NEUTROPHILS % (AUTO) 82.3 % (38.5-71.5); PLATELET COUNT (AUTO) 75 K/uL (152-348); RED BLOOD CELL COUNT(AUTO) 4.32 MIL/uL (4.06-5.63)
[2018-02-08] MEDS: THIAMINE HCL 100 MG TABLET PO SCH (08:42)
[2018-02-08] MEDS ORDERED: POTASSIUM CHLORIDE 10 MEQ TAB.PRT.SR PO ONE (09:00)
[2018-02-08] MEDS ORDERED: CEFTRIAXONE 1 G in IV DEXTROSE 5% 50 ML IV SCH (09:00)
[2018-02-08 10:57] LABS: BAND % (MANUAL) 10 % (0-10); LYMPHOCYTES % (MANUAL) 10 % (20-40); MONOCYTES % (MANUAL) 8 % (2-10); NEUTROPHILS % (MANUAL) 72 % (42-75)
[2018-02-08] MEDS: MAGNESIUM SULFATE/D5W 100 ML IV SCH ×4 (11:18→22:20)
[2018-02-08] MEDS: chlorproMAZINE 25 MG TABLET PO PRN (11:37)
[2018-02-08 11:49] VITALS: BP 132/84
[2018-02-08 15:00] VITALS: BP 115/76
[2018-02-08] MEDS: POTASSIUM PHOSPHATE MM 5 MMOL in IV DEXTROSE 5% 100 ML IV SCH ×4 (15:24→21:20)
[2018-02-08 20:00] VITALS: BP 126/70
[2018-02-09] VITALS: BP 96/63
[2018-02-09] MEDS ORDERED: PIPERACILLIN/TAZOBACTAM/D5W 100 ML IV ONE (00:18)
[2018-02-09] MEDS: PIPERACILLIN/TAZOBACTAM/D5W 3.375 G in PREMIXED 1 EACH IV SCH ×4 (00:41→21:38)
[2018-02-09] MEDS: IV NS 1000 ML 1,000 ML IV PRN ×3 (01:30→21:37)
[2018-02-09 04:00] VITALS: BP 129/80
[2018-02-09 06:51] LABS: EOSINOPHILS # (AUTO) 0.1 K/uL (0.0-0.7); HEMATOCRIT 42.2 % (36.7-47.1); HEMOGLOBIN 14.8 g/dL (12.5-16.3); LYMPHOCYTES # (AUTO) 0.7 K/uL (20.0-40.0); MEAN CORPUSCULAR HGB CONC 35 g/dL (32.5-36.3)
[2018-02-09 06:53] LABS: CREATININE 0.8 mg/dL (0.6-1.3); MAGNESIUM 2.2 mg/dL (1.8-2.4); PHOSPHOROUS 2.9 mg/dL (2.5-4.9); POTASSIUM 3.9 mmol/L (3.5-5.1)
[2018-02-09 06:57] LABS: BASOPHILS % (AUTO) 0.4 % (0.0-2.0); EOSINOPHILS % (AUTO) 1.6 % (0.0-7.0); LYMPHOCYTES % (AUTO) 10.6 % (20.5-51.5); MEAN CORPUSCULAR VOLUME 93.8 fL (73.0-96.2); MONOCYTES % (AUTO) 13.6 % (0.0-11.0); NEUTROPHILS # (AUTO) 5.2 K/uL (1.8-8.9); NEUTROPHILS % (AUTO) 73.8 % (38.5-71.5)
[2018-02-09 06:58] LABS: PLATELET COUNT (AUTO) 98 K/uL (152-348)
[2018-02-09] MEDS: THIAMINE HCL 100 MG TABLET PO SCH (08:03)
[2018-02-09 09:50] LABS: BAND % (MANUAL) 6 % (0-10); EOSINOPHILS % (MANUAL) 1 % (0-8); LYMPHOCYTES % (MANUAL) 16 % (20-40); MONOCYTES % (MANUAL) 16 % (2-10); NEUTROPHILS % (MANUAL) 61 % (42-75)
[2018-02-09 11:09] VITALS: BP 128/88
[2018-02-09 15:44] VITALS: BP 128/92
[2018-02-09 20:00] VITALS: BP 128/92
[2018-02-10] VITALS: BP 125/70
[2018-02-10 04:00] VITALS: BP 122/70
[2018-02-10] MEDS: PIPERACILLIN/TAZOBACTAM/D5W 3.375 G in PREMIXED 1 EACH IV SCH ×2 (05:36→14:59)
[2018-02-10] MEDS: IV NS 1000 ML 1,000 ML IV PRN (05:38)
[2018-02-10 07:19] LABS: CREATININE 0.7 mg/dL (0.6-1.3); POTASSIUM 3.3 mmol/L (3.5-5.1)
[2018-02-10] MEDS: THIAMINE HCL 100 MG TABLET PO SCH (08:59)
[2018-02-10 11:41] VITALS: BP 138/98
[2018-02-10] MEDS ORDERED: POTASSIUM CHLORIDE 20 MEQ TAB.PRT.SR PO ONE (12:00)
[2018-02-10 15:33] VITALS: BP 129/92
== END 2018-02-10 17:34 | disposition home or self-care (01) | DRG 896 ==
LOC: ER 07:42 → TELE 11:08 → MED 02-10 15:45
PROVIDERS: ADMIT Internal Medicine; ATTEND Nurse Practitioner Acute Care
DX: F10.239 Alcohol dependence with withdrawal, unspecified (principal); A41.9 Sepsis, unspecified organism; E44.0 Moderate protein-calorie malnutrition; D69.59 Other secondary thrombocytopenia; E83.42 Hypomagnesemia; E83.39 Other disorders of phosphorus metabolism; E83.51 Hypocalcemia; N39.0 Urinary tract infection, site not specified; E87.1 Hypo-osmolality and hyponatremia; B96.89 Other specified bacterial agents as the cause of diseases classified elsewhere; Z68.23 Body mass index [BMI] 23.0-23.9, adult; E86.1 Hypovolemia; E87.6 Hypokalemia; Z87.440 Personal history of urinary (tract) infections; Z86.39 Personal history of other endocrine, nutritional and metabolic disease; Y90.9 Presence of alcohol in blood, level not specified; R06.6 Hiccough; G25.2 Other specified forms of tremor; Z86.69 Personal history of other diseases of the nervous system and sense organs
CPT/HCPCS: 36415; 36569; 70030-TC; 71045; 83605; 83690; 83735; 84100; 85025; 85730; 87040; 87086; 93005; A4663; A9150; J0692; J0696; J1580; J2060; J2405; J2543; J3230; J3370; J3411; J3475; J3480; J3490; J7030; J7040; J7050; J7060; Q0161